=== PATIENT | female | born 1955 | race Caucasian/White ===

== ENCOUNTER → 2017-10-26 | Outpatient (CLI) | payer OTHER | LOC: M WHC 10:03 | DX: Z12.31 Encounter for screening mammogram for malignant neoplasm of breast (principal) ==

== ENCOUNTER → 2017-10-26 | Outpatient (REF) | payer OTHER | LOC: M SFHCWAGY 10:32 | DX: Z01.419 Encounter for gynecological examination (general) (routine) without abnormal findings (principal) ==

== ENCOUNTER → 2018-09-24 | Outpatient (REF) | payer OTHER ==
[~2018-09-24] MED LIST: OMEP40CA2 PO; [UNRECOGNIZED DRUG - CODE] PO
[2018-09-24 17:13] LABS: MEAN CORPUSCULAR HGB CONC 31.7 g/dl (32.0-36.5); MEAN CORPUSCULAR VOLUME 85.2 fl (80.0-96.0); PLATELET COUNT, AUTOMATED 242 10^3/uL (150-450); RED BLOOD COUNT 4.81 10^6/uL (4.00-5.40); WHITE BLOOD COUNT 5.9 10^3/uL (4.0-10.0)
[2018-09-24 17:23] LABS: BLOOD UREA NITROGEN 14 MG/DL (7-18); CALCIUM LEVEL 8.9 MG/DL (8.8-10.2); CARBON DIOXIDE LEVEL 30 MEQ/L (21-32); CHLORIDE LEVEL 101 MEQ/L (98-107); CREATININE FOR GFR 0.66 MG/DL (0.55-1.30); GLOMERULAR FILTRATION RATE > 60.0 (>45); GLUCOSE, FASTING 82 MG/DL (70-100); POTASSIUM SERUM 4.2 MEQ/L (3.5-5.1); SODIUM LEVEL 138 MEQ/L (136-145)
== END ==
LOC: M SFHCCLAY 11:40
PROVIDERS: ATTEND Family Medicine
DX: Z01.818 Encounter for other preprocedural examination (principal); E25.0 Congenital adrenogenital disorders associated with enzyme deficiency

== ENCOUNTER → 2018-09-24 | Outpatient (CLI) | payer OTHER ==
[~2018-09-24] MED LIST changes: +IBUP200C25 PO; +PERCOCET PO
--- NOTE | 2018-09-25 02:37 | REP ---
Clinical: Preoperative assessment . Comparison: None . Technique: PA and lateral. Findings: The mediastinum and cardiac silhouette are normal. The lung abreu are clear and without acute consolidation, effusion, or pneumothorax. The skeletal structures are intact and normal. Impression: 1. No acute cardiopulmonary process.
== END ==
LOC: M CLY 11:45
PROVIDERS: ATTEND Family Medicine
DX: Z01.818 Encounter for other preprocedural examination (principal); E25.0 Congenital adrenogenital disorders associated with enzyme deficiency

== ENCOUNTER 2018-10-09 07:02 | Day surgery (SDC) | payer OTHER ==
[~2018-10-09] VITALS: Ht 99.1 cm; Wt 73.0 kg
[~2018-10-09 07:02] MED LIST changes: -IBUP200C25 PO; -PERCOCET PO
[2018-10-09] MEDS ORDERED: MIDAZOLAM INJ 2 MG/2 ML VIAL (J2250) As Ordered ONE (07:17)
[2018-10-09] MEDS ORDERED: LIDOCAINE 2% INJ 100 MG/5 ML SDV (FOR ANES.) As Ordered ONE (07:18)
[2018-10-09] MEDS ORDERED: PROPOFOL 200 MG/20 ML VIAL As Ordered ONE (07:18)
[2018-10-09] MEDS ORDERED: ONDANSETRON 4MG/2ML VIAL (J2405) As Ordered ONE (07:18)
[2018-10-09] MEDS ORDERED: ROCURONIUM BROMIDE 50 MG/5 ML VIAL As Ordered ONE (07:18)
[2018-10-09] MEDS ORDERED: dexameTHASONE 4 MG/ML 1ML VIAL (J1100) As Ordered ONE (07:18)
[2018-10-09] MEDS ORDERED: fentaNYL 250 MCG/5 ML INJECTION (J3010) As Ordered ONE (07:18)
[2018-10-09] MEDS ORDERED: ceFAZolin 2 GM/D5W 50 ML IV BAG (J0690 PER 500MG) As Ordered ONE (07:20)
[2018-10-09] MEDS ORDERED: SEVOFLURANE INHAL SOLN 250 ML BTL As Ordered ONE (07:49)
[2018-10-09] MEDS ORDERED: IBUP200C25 PO (08:00)
[2018-10-09] MEDS ORDERED: HEPARIN SOD (PORCINE) 5000 UNITS/ML VIAL As Ordered ONE (08:24)
[2018-10-09] MEDS ORDERED: ePHEDrine SULFATE 25 MG/5 ML(5MG/ML) SYRINGE As Ordered ONE (08:41)
[2018-10-09] MEDS ORDERED: HYDROmorphone HCL 2 MG/ML 1ML VIAL (J1170) As Ordered ONE (09:48)
[2018-10-09] MEDS ORDERED: NEOSTIGMINE 10 MG/10 ML VIAL (J2710) As Ordered ONE (09:48)
[2018-10-09] MEDS ORDERED: KETOROLAC 60 MG/2 ML VIAL (J1885) As Ordered ONE (09:48)
[2018-10-09] MEDS ORDERED: GLYCOPYRROLATE INJ 0.2 MG/ML 2 ML VIAL As Ordered ONE (09:48)
[2018-10-09] MEDS ORDERED: METOCLOPRAMIDE INJ 10MG/2ML VIAL (J2765) As Ordered ONE (12:14)
--- NOTE | 2018-10-09 12:38 | POST-OPPD ---
Postoperative Procedure Note Date Of Procedure: Oct 09, 2018 PREOPERATIVE DIAGNOSIS: Symptomatic macromastia. Skin lesion right neck, left chest POSTOPERATIVE DIAGNOSIS: same FINDINGS: Large breasts. Small skin lesion right neck, left chest PROCEDURE: Excision lesion right neck, left chest. Bilateral breast reduction. SURGEON: Dr Coates HAM CURER: Dr Dyer ANESTHESIA: General SPECIMENS: Right neck, left chest lesions. Right breast 765gm, Left breast 770 gm ESTIMATED BLOOD LOSS: 150cc REPLACED: none DRAINS: 10mm KANDACE drains x 2 COMPLICATIONS: none POSTOPERATIVE CONDITION: stable TANNER COATES DO Oct 09, 2018 12:38
[2018-10-09] MEDS ORDERED: fentaNYL 100 MCG/2 ML INJECTION (J3010) As Ordered ONE (12:58)
[2018-10-09] MEDS ORDERED: PERCOCET 5MG/325MG TAB As Ordered ONE (12:58)
[2018-10-09] MEDS ORDERED: METOCLOPRAMIDE INJ 10MG/2ML VIAL (J2765) IV PRN (13:15)
[2018-10-09] MEDS ORDERED: LR 1,000 ML IV SCH (13:15)
[2018-10-09] MEDS ORDERED: fentaNYL 100 MCG/2 ML INJECTION (J3010) IV PRN (13:15)
[2018-10-09] MEDS ORDERED: ONDANSETRON 4MG/2ML VIAL (J2405) IV PRN (13:15)
[2018-10-09] MEDS ORDERED: MORPHINE 4 MG/ML 1ML VIAL/SYRINGE (J2270) IV PRN (13:15)
[2018-10-09] MEDS ORDERED: PERCOCET 5MG/325MG TAB PO PRN (13:15)
[2018-10-09] MEDS ORDERED: PILL CRUSHER/CUTTER 1 EACH XX PRN (13:15)
[2018-10-09] MEDS: LR 1,000 ML IV SCH (14:29)
[2018-10-09 14:30] VITALS: BP 136/84
[2018-10-09 15:00] VITALS: BP 123/72
[2018-10-09 16:00] VITALS: BP 121/68
[2018-10-09 17:00] VITALS: BP 125/66
[2018-10-09] MEDS: ceFAZolin SOD 1 GM in D5W MINI-BAG PLUS 50 ML IV SCH (17:13)
[2018-10-09] MEDS: PERCOCET 5MG/325MG TAB PO PRN (17:17)
[2018-10-09 18:00] VITALS: BP 127/80
[2018-10-09 22:00] VITALS: BP 112/67
--- NOTE | 2018-10-09 22:30 | RO ---
DATE OF OPERATION: 10/09/2018 PREOPERATIVE DIAGNOSES: Symptomatic macromastia and skin lesion right neck and left chest. POSTOPERATIVE DIAGNOSES: Symptomatic macromastia and skin lesion right neck and left chest. PROCEDURE: Excision of lesions right neck and left chest and bilateral breast reduction. ATTENDING SURGEON: Jazmine Melchor DO WINDOWS TECHNICAL SPECIALIST: Stefano Dyer MD ANESTHESIA: General. SPECIMENS SENT: Right neck and left chest lesions and right breast 765 grams, left breast 770 grams tissue. ESTIMATED BLOOD LOSS: 150 mL. There is no replacement needed. Two 10-mm Garcia-Sheikh (KANDACE) drains were left in place. There were no complications. DESCRIPTION OF PROCEDURE: This is a 63-year-old female who presented to our office complaining of her severe upper back pain which is not responding to medical treatment. She has very large breasts and very heavy breasts. She wants to have a breast reduction to eliminate the back pain. She is a good candidate. All the risks and benefits and alternatives were discussed with the patient at length, and she is ready to proceed. The patient was marked in the upright position in the preoperative holding area. Her measurements from the sternal notch to the nipple areolar complex on the left was 32.5 cm. On the right, it was 33. The new position is going to be at 23 cm. After the markings were completed, the patient was brought to the operating room and placed in supine position. Preoperative antibiotics are given. Sequential stockings placed on the lower calves. General anesthesia was induced. She was prepped and draped in the usual sterile fashion. 5000 units of heparin subcutaneous were given before the case begun. We started our procedure by identifying the two lesions which are pedunculated skin lesions which on the right neck and the left chest, and both were excised in elliptical fashion and sent to pathology. They appear benign, and a single stitch was used in the right neck. A 5-0 plain gut suture was used to repair the right neck lesion and the left chest lesion, as well. Then we started our breast reduction procedure on the right side. Nipple areolar complex was outlined at 42 mm in diameter, and then incision carried out using 10 blade according to superomedial pedicle fashion. The inferolateral portion of the breast was removed using electrocautery. Hemostasis obtained using electrocautery, as well. The pedicle was de-epithelialized Biswas scissors, and then the whole wound is irrigated with saline-bacitracin irrigation. Then, the pedicle was turned superiorly into its new location at 23 cm from the sternal notch. The new mound was re-created using 0 Vicryl. As of note, the patient is a chronic steroid user so the fat tissue is very fragile. So, 0 Vicryl sutures were used to conform and mold the new mound. The pedicles were then closed with interrupted 3-0 Monocryl sutures creating the vertical scar. Nipple areolar complex was set in place with interrupted 3-0 Monocryl sutures at that point, and then the excess tissue was marked and resected, creating the horizontal incision, making the anchor right pattern completed. A 10-mm Garcia-Sheikh drain was placed through the lateral portion of the horizontal incision, and we continued closing it with interrupted 3-0 Monocryl sutures and a 3-0 V-Loc Monocryl suture, as well. Then, we turned our attention to the left side; and again, the nipple areolar complex was measured at 42 mm in diameter, and then resection started according to superior, medial, and pedicle fashion. A resection was done using electrocautery. Hemostasis obtained, and the pedicle was de-epithelialized using Biswas scissors, and then the whole wound is irrigated with bacitracin irrigation solution. The pedicle was in good viable condition. It is turned superiorly and to its new position, 23 cm from sternal notch. The mound was re-created using 0 Vicryl sutures, and then the pedicles were then closed with interrupted 3-0 Monocryl sutures creating the vertical scar. The vertical scar is 10 cm laterally. Then, the anchor suture was done on inferior portion, and excess skin was marked and resected, completing the wide pattern skin envelope. Nipple areolar complex was then sutured in place with 3-0 Monocryl sutures deep, 4-0 Monocryl and 5-0 plain gut sutures. The horizontal incision was closed with interrupted 3-0 Monocryl sutures and the V-Loc sutures 3-0 Monocryl, as well. A 10-mm Garcia-Sheikh drain was placed through the lateral portion of the incision. The patient's skin is very thin due to the chronic steroid use and very easily injured, produces ecchymosis very easily. So, we opted to use Xeroform as a dressing. She does have postoperative ecchymosis present on the table along the vertical scar and along the horizontal incision, but it is not extending, it is not a hematoma. Nipple areolar complex is in the perfect condition with good vasculature and good perfusion. Support bra was placed with a dressing. The patient is extubated in the operating room without any difficulties and transferred to the recovery room in stable condition.
[2018-10-10] MEDS: ceFAZolin SOD 1 GM in D5W MINI-BAG PLUS 50 ML IV SCH (01:31)
[2018-10-10 02:00] VITALS: BP 109/59
[2018-10-10 06:00] VITALS: BP 101/61
[2018-10-10] MEDS: PERCOCET 5MG/325MG TAB PO PRN ×2 (08:25→14:46)
--- NOTE | 2018-10-10 08:47 | IPNPDOC ---
Subjective General Date/Time Seen The patient was seen on 10/10/18 at 08:43. Subject Chief Complaint/History The patient is a 63-year-old female admitted with a reason for visit of Bilateral Breast Hypertrophy. S/p BBR POD 1. Comfortable. No issues overnight. Tolerating foot, drinking, ambulating to the bathroom. Current Medications Current Medications Current Medications Cefazolin Sodium 1 gm/Dextrose 50 ml @ 100 mls/hr Q8H IV Last administered on 10/10/18at 01:31; Start 10/09/18 at 17:00; Stop 10/10/18 at 01:29; Status DC Dexamethasone (Decadron) 0.5 mg DAILY PO Last administered on 10/09/18at 18:00; Start 10/09/18 at 18:00 Fentanyl Citrate (Sublimaze) 25 mcg Q5MP PRN IV MODERATE PAIN (PS 4-7) Last administered on 10/09/18at 13:00; Start 10/09/18 at 13:15; Stop 10/09/18 at 14:15; Status DC Lactated Ringer's 1,000 ml @ 50 mls/hr Q20H IV Last administered on 10/09/18at 14:29; Start 10/09/18 at 13:00 Lactated Ringer's 1,000 ml @ 100 mls/hr Q10H IV ; Start 10/09/18 at 13:15; Stop 10/09/18 at 14:15; Status DC Metoclopramide HCl (REGLAN INJection) 10 mg Q6HP PRN IV NAUSEA OR VOMITING; Start 10/09/18 at 13:15; Stop 10/09/18 at 14:15; Status DC Miscellaneous (Unresolved Clarification Entry) SEE LABEL COMMENTS DAILY XX ; Start 10/09/18 at 09:00; Stop 10/09/18 at 13:07; Status DC Morphine Sulfate (Morphine Sulfate Inj) 4 mg Q4H PRN IV SEVERE PAIN (PS 8-10); Start 10/09/18 at 13:15 Ondansetron HCl (ZOFRAN INJection) 4 mg Q4HP PRN IV NAUSEA OR VOMITING; Start 10/09/18 at 13:15; Stop 10/09/18 at 14:15; Status DC Oxycodone/ Acetaminophen (Percocet 5mg/ 325mg Tablet) 1 tab ASDIRECTED PRN PO MILD/MODERATE PAIN (PS 1-7) Last administered on 10/09/18at 13:12; Start 10/09/18 at 13:15; Stop 10/09/18 at 14:15; Status DC Oxycodone/ Acetaminophen (Percocet 5mg/ 325mg Tablet) 2 tab Q4H PRN PO PAIN Last administered on 10/10/18at 08:25; Start 10/09/18 at 13:15 Allergies Coded Allergies: No Known Allergies (Unverified , 09/25/18) Objective Physical Examination Examination GENERAL APPEARANCE:Patient seen, laying in bed, awake, alert, and oriented. Comfortable, in no acute distress. Pain controlled with Percocet SKIN: Warm and moist. Breast: Incisions clean, dry. Post op ecchymosis not expanding. No acute bleeding. NAC viable, pink, warm. KANDACE drains with serosanguineous drainage. HEENT: Normocephalic, atraumatic. Huslia palpebral conjunctiva, anicteric sclerae. Lips and mucosa appear moist. NECK: Supple, no thyromegaly. No obvious jugular venous distention. LUNGS: Clear to auscultation bilaterally. No wheezing appreciated. HEART: No chest wall abnormalities. Regular rate and rhythm with no murmurs appreciated. Vital Signs Vital Signs Date Time Temp Pulse Resp B/P (MAP) Pulse Ox O2 Delivery O2 Flow Rate FiO2 10/10/18 08:25 20 10/10/18 06:00 98.9 70 101/61 (74) 98 10/09/18 13:44 Nasal Cannula 2 I&Os I&O- Last 24 Hours up to 6 AM 10/10/18 06:00 Intake Total 2800 ml Output Total 215 ml Balance 2585 ml Impression Symptomatic macromastia. S/p BBR. Stable for discharge Pain controlled. Dressings changed. Monitor KANDACE output at home Pain control F/up Plastic surgery Sunday, Oct 14 Instructions given. Plan / VTE VTE Prophylaxis Ordered?: Yes TANNER COATES DO Oct 10, 2018 08:47
[2018-10-10] MEDS ORDERED: PERCOCET PO (08:49)
[2018-10-10] MEDS: LR 1,000 ML IV SCH (09:00)
[2018-10-10 10:00] VITALS: BP 101/63
== END 2018-10-10 14:50 | disposition home or self-care (01) ==
LOC: M SDC 07:02 → M MS5PR 13:50 → M SDC 10-10 14:50
PROVIDERS: ATTEND Plastic Surgery Surgery of the Hand
DX: N62 Hypertrophy of breast (principal); L82.1 Other seborrheic keratosis; B07.8 Other viral warts; A60.00 Herpesviral infection of urogenital system, unspecified; E25.0 Congenital adrenogenital disorders associated with enzyme deficiency; G89.29 Other chronic pain; Z79.899 Other long term (current) drug therapy; Z79.52 Long term (current) use of systemic steroids; M54.5 Low back pain
CPT/HCPCS: 11400; 11420; 19318; 88305; 96374; 96376; J0690; J1100; J1170; J1885; J2250; J2405; J2710; J2765; J3010

== ENCOUNTER → 2019-01-01 | Outpatient (REF) | payer OTHER ==
[~2019-01-01] MED LIST changes: +IBUP200C25 PO; +PERCOCET PO
== END ==
LOC: M LAB REF 19:41
PROVIDERS: ATTEND Plastic Surgery Surgery of the Hand
DX: D22.5 Melanocytic nevi of trunk (principal)

== ENCOUNTER → 2019-10-14 | Outpatient (REF) | payer OTHER ==
[~2019-10-14] MED LIST changes: -OMEP40CA2 PO; +OMEP40CA97 PO
== END ==
LOC: M SFHCWAGY 17:05
PROVIDERS: ATTEND Nurse Practitioner Family
DX: Z12.4 Encounter for screening for malignant neoplasm of cervix (principal)

== ENCOUNTER → 2019-10-14 | Outpatient (CLI) | payer OTHER ==
--- NOTE | 2019-10-14 14:59 | REPMRS ---
Patient History The patient states she had a clinical breast exam in 2019. Family history of breast cancer at age 50 or over in mother. Bilateral breast reduction 10/09/2018. Digital Woman Screen Mammo: October 14, 2019 - Exam #: [id number] Bilateral CC and MLO view(s) were taken. Technologist: Karyna Richter, Technologist Prior study comparison: October 26, 2017, digital woman screen mammo performed at [facility]. November 05, 2015, digital woman screen mammo performed at [facility]. FINDINGS: There are scattered fibroglandular densities. The patient status post bilateral breast reduction surgery in the interval since the October 26 2017 prior mammography. There is a 5 mm nodular neodensity superficially in the right lateral breast superiorly. On mammographic and tomographic images, this has a lucent center consistent with a small nodule of fat necrosis. This is felt to have a benign appearance. There has been no change in the appearance of the mammogram from the prior studies. There is a mild amount of scattered fibroglandular density which is fairly symmetric. There is no interval development of dominant mass, architectural distortion, or grouped microcalcification suggestive of malignancy. 3-D tomosynthesis shows no additional findings. Assessment: BI-RADS/ACR category 2 mammogram. Benign Findings. Recommendation Breast MRI of both breasts in 6 months. Routine screening mammogram of both breasts in 1 year (for women over age 40). This patient's Lifetime Breast Cancer Risk is estimated at 22.3 %. Annual screening Breast MRI scanniing is recommended for patient's whose lifetime risk assessment is over 20%. This mammogram was interpreted with the aid of an FDA-approved computer-aided dectection system. Electronically Signed By: Brody Christianson MD 10/14/19 [id number]
== END ==
LOC: M WHC 13:51
PROVIDERS: ATTEND Nurse Practitioner Family
DX: Z12.31 Encounter for screening mammogram for malignant neoplasm of breast (principal); N63.10 Unspecified lump in the right breast, unspecified quadrant

== ENCOUNTER → 2019-10-14 | Outpatient (CLI) | payer OTHER ==
--- NOTE | 2019-10-22 13:24 | DEXA ---
AP SPINE L1 - L4 1.199 0.0 1.5 LT FEMUR TOTAL 0.984 -0.2 0.9 LT NECK 0.879 -1.1 0.2 RT FEMUR TOTAL 1.010 0.0 1.1 RT NECK 0.942 -0.7 0.7 TOTAL BODY TOTAL OTHER COMMENTS: Normal bone densitometry of the spine. Normal bone densitometry of the right hip. There is low bone density of the left hip. The density of the spine has decreased 5.6% since 10/06/2011. The density of the left hip has decreased 2.8% since 10/06/2011. The density of the right hip has decreased 2.0% since 10/06/2011. FOLLOW-UP: Recommendation for the next bone density exam: 2 years. MANUEL
== END ==
LOC: M WHC 13:56
PROVIDERS: ATTEND Internal Medicine
DX: M85.80 Other specified disorders of bone density and structure, unspecified site (principal)